=== PATIENT | male | born 2000 | race Caucasian/White ===

== ENCOUNTER 2022-01-09 12:53 | Outpatient (CLI) | payer BC, OTHER | END 2022-01-09 12:54 | disposition home or self-care (01) | LOC: EEG 12:53 | PROVIDERS: ATTEND Specialist | DX: G40.009 Localization-related (focal) (partial) idiopathic epilepsy and epileptic syndromes with seizures of localized onset, not intractable, without status epilepticus (principal) | CPT/HCPCS: 95816; 95957 ==